=== PATIENT | female | born 1965 ===

== ENCOUNTER 2019-04-15 07:51 | Outpatient (CLI) | payer OTHER | END 2019-04-15 07:52 | disposition home or self-care (01) | LOC: SONOGRAMA 07:51 | DX: E04.2 Nontoxic multinodular goiter (principal) ==

== ENCOUNTER 2023-12-22 10:00 | Outpatient (CLI) | payer OTHER | END 2023-12-22 10:03 | disposition home or self-care (01) | LOC: SONOGRAMA 10:00 | PROVIDERS: ATTEND Pathology Anatomic Pathology | DX: D34 Benign neoplasm of thyroid gland (principal); E07.89 Other specified disorders of thyroid; E04.1 Nontoxic single thyroid nodule ==